=== PATIENT | female | born 2000 | race Caucasian/White ===

== ENCOUNTER → 2020-10-23 15:02 | Outpatient (CLI) | payer BC, SELFPAY ==
--- NOTE | ~2020-10-23 | US_ITS ---
US breast LT complete DATE: 10/23/2020 15:26 INDICATION: Follow-up of breast lump, patient reports no change. TECHNIQUE: High-resolution ultrasound and color flow imaging of the complete left breast COMPARISON: Prior imaging was performed at [facility] in [place]. Those images are not available for comparison at this time. FINDINGS: 12:00 3 cm from nipple: There are 2 contiguous parallel circumscribed hypoechoic solid lesi ons measuring 0.7 x 1.5 centimeters and 0.8 x 1.9 cm. There is through transmission, no posterior sha dowing, no detectable color flow signal from within the lesions. These are likely benign fibroadenoma s. 2:00 9 cm from nipple: Similar parallel circumscribed hypoechoic solid lesion without internal color flow signal measuring 0.4 x 0.8 cm, but in contrast to the 12:00 lesions there is some attenuation of the ultrasound beam posteriorly. 3:00 8 cm from nipple: Parallel circumscribed hypoechoic solid lesion measuring 0.6 x 11 mm, without internal color flow signal or posterior shadowing. 4:00 5 cm from nipple: At the area of clinical complaint of left breast lump is a parallel circumscri bed hypoechoic solid lesion measuring 2.5 x 4.1 cm. There is some internal vascularity on color flow imaging. No suspicious solid lesion or shadowing is noted otherwise. No breast cysts are evident. IMPRESSION: BI-RADS Category 0: Incomplete; need additional imaging evaluation Recommendation: Comparison with the prior ultrasound imaging of the left breast Reviewed, dictated and finalized at [facility] Reviewed, dictated and finalized at [facility].
== END ==
PROVIDERS: Visit Provider Obstetrics & Gynecology
DX: N63.25 Unspecified lump in the left breast, overlapping quadrants (principal)
CPT/HCPCS: 76641

== ENCOUNTER → 2021-04-24 08:59 | Outpatient (CLI) | payer BC, SELFPAY ==
--- NOTE | ~2021-04-24 | US_ITS ---
EXAMINATION: US breast LT limited HISTORY: Left breast mass follow-up. Biopsy was previously recommended however clinical decision was made followed by ultrasound and clinical exam. TECHNIQUE: Limited left breast ultrasound is performed. COMPARISON: 10/23/2020, 11/21/2019, 04/25/2019 FINDINGS: There is a 3.7 x 2.5 cm oval, circumscribed, parallel, hypoechoic mass with posterior enhan cement and internal vascularity at the 4:00 location 5 cm from the nipple. This appears to be stable over multiple comparison ultrasound examinations dating back to 04/25/2019. There are four additional smaller masses without internal vascularity but with otherwise similar sonographic features. IMPRESSION: Multiple left breast masses with sonographic features suggestive of fibroadenomas. The largest demons trates two years of stability. Biopsy would be indicated due to the mass size however one could consi gladys clinical follow-up and surgical excision if there is enlargement of the mass. BI-RADS Category 2: Benign finding(s). Reviewed, dictated and finalized at [facility]. NFORMATICS SPECIALIST IMPRESSION: Multiple left breast masses with sonographic features suggestive of fibroadenom as. The largest demonstrates two years of stability. Biopsy would be indicated due to the mass size however one could consider clinical follow-up and surgical excision if there is enlargement of the mass. BI-RADS Category 2: Benign finding(s).
== END ==
PROVIDERS: PCP Family Medicine; Visit Provider Obstetrics & Gynecology
DX: R92.8 Other abnormal and inconclusive findings on diagnostic imaging of breast (principal)
CPT/HCPCS: 76642

== ENCOUNTER → 2022-12-12 08:13 | Outpatient (CLI) | payer BC, SELFPAY ==
--- NOTE | ~2022-12-12 | US_ITS ---
EXAMINATION: US breast LT limited HISTORY: Left breast masses TECHNIQUE: Limited left breast ultrasound was performed. COMPARISON: 04/24/2021, 10/23/2020, 11/21/2019, 04/25/2019 FINDINGS: There is a 3.6 x 2.9 cm oval, circumscribed, parallel, hypoechoic mass with internal vascul arity and no posterior features at the 4:00 location, 5 cm from the nipple. This demonstrates minimal change compared to prior examinations. There are smaller, similar-appearing masses at the 12:00 loca tion 3 cm from the nipple, at 2:00 location 9 cm from the nipple, and the 2:30 location 8 cm from the nipple which demonstrate slight increase in size since the comparison examination. IMPRESSION: Multiple left breast masses with sonographic features consistent with fibroadenomas. Continued clinic al follow-up is recommended. BI-RADS Category 2: Benign finding(s). Reviewed, dictated and finalized at [facility]. IMPRESSION: Multiple left breast masses with sonographic features consistent with fibroaden omas. Continued clinical follow-up is recommended. BI-RADS Category 2: Benign finding(s).
== END ==
PROVIDERS: PCP Family Medicine; Visit Provider Family Medicine
DX: D24.2 Benign neoplasm of left breast (principal)
CPT/HCPCS: 76642

== ENCOUNTER 2023-10-29 21:10 | Emergency (ER) | payer BC, SELFPAY ==
[2023-10-29 21:20] VITALS: BP 116/74; PULSE 66; RESP 16; O2SAT 100
--- NOTE | 2023-10-29 22:29 | PC.NURSE ---
Mother approached triage desk and states she is going to take pt home. States she has an appt with PCP tomorrow.
== END 2023-10-29 22:29 | disposition left against medical advice (07) ==
LOC: ANHED 22:35
PROVIDERS: PCP Family Medicine
DX: L02.412 Cutaneous abscess of left axilla (principal)
CPT/HCPCS: 99199